=== PATIENT | male | born 1950 | race Caucasian/White ===

== ENCOUNTER 2018-10-30 10:43 | Emergency (ER) | payer MEDICARE, OTHER ==
[2018-10-30 11:55] VITALS: TEMP 97.1
--- NOTE | 2018-10-30 12:13 | RAD ---
EXAM DESCRIPTION: Chest,2 Views CLINICAL HISTORY: pain COMPARISON: None TECHNIQUE: PA/lateral FINDINGS: Question old healed rib fractures on the right. Small amount of fluid in the right minor fissure. Colonic interposition under the right hemidiaphragm. The film is partly expiratory with crowding of lung markings in the perihilar and lower lobe regions. Apices are clear. Lateral view shows blunting of one of the posterior costophrenic angles, probably the right, consistent with pleural effusion of small size. No focal consolidation to suggest pneumonia. No cierra congestive failure. IMPRESSION: Prominent heart without congestive failure. Small right pleural effusion. Electronically signed by: Evangelista Victoria MD 10/30/2018 12:12 PM [facility]
--- NOTE | 2018-10-30 12:15 | RAD ---
EXAM DESCRIPTION: Lumbar Spine 3 x-ray Views CLINICAL HISTORY: pain COMPARISON: None Available. TECHNIQUE: AP/lateral/coned-down lateral FINDINGS: There is degenerative leftward curvature of the mid and lower lumbar spine. Frontal view shows intact pedicles and transverse processes. Sacrum appears intact with the marrow SI joints. Lateral view shows no vertebral compressions. Degenerative loss of disc height is seen at L5-S1 with grade 1 anterolisthesis of L5 on S1 measuring 6 mm. Question bilateral L5 spondylolysis. Bones appear mildly osteopenic. Degenerative disc narrowing of the lower T-spine including T12-L1. IMPRESSION: Grade 1 spondylolisthesis of L5 on S1 with L5-S1 disc degenerative narrowing. Electronically signed by: Evangelista Victoria MD 10/30/2018 12:14 PM [facility]
--- NOTE | 2018-10-30 12:16 | RAD ---
EXAM DESCRIPTION: Thoracic Spine,AP Lateral CLINICAL HISTORY: pain COMPARISON: None Available. TECHNIQUE: AP/lateral/swimmer's lateral of the thoracic spine FINDINGS: There is anatomic alignment of thoracic vertebral bodies. Bones appear osteopenic. Normal appearance of the pedicles. Posterior medial ribs appear intact. No abnormal spinal curvature is present. Vertebral compressions: None Intervertebral disc spaces: Mild degenerative narrowing at multiple levels. Spurring is noted prominent finding. IMPRESSION: Negative for fracture or malalignment of the thoracic spine. Electronically signed by: Evangelista Victoria MD 10/30/2018 12:15 PM [facility]
--- NOTE | 2018-10-30 12:49 | ED.PDOC ---
History of Present Illness - General Chief Complaint: General Time Seen by Provider: 10/30/18 12:31 Source: patient, family Exam Limitations: no limitations - History of Present Illness Initial Comments: SLIPPED AND FELL ON ICE 1 WK AGO. LANDED ON R RIBS. R RIBS AND THORACOLUMBAR BACK PAINFUL. NO LOC. NO HEAD COLLISION. NO OTHER PAINS. PAIN SEVERE ENOUGH THAT HE IS TAKING AN OLD NORCO RX. Timing/Duration: 1 week Severity: moderate Improving Factors: nothing Worsening Factors: movement Associated Symptoms: denies symptoms Allergies/Adverse Reactions: Allergies NO KNOWN ALLERGY Allergy (Verified 10/30/18 11:17) Home Medications: Ambulatory Orders Acetaminophen W/ Codeine [Tylenol W/ CODEINE #3] 2 ea PO Q6H PRN #20 10/30/18 Finasteride 5 mg PO DAILY 10/30/18 Tamsulosin HCl [Flomax] 0.4 mg PO DAILY 10/30/18 Review of Systems - Review of Systems Constitutional: States: no symptoms reported EENTM: States: no symptoms reported Respiratory: States: no symptoms reported. Denies: cough Cardiology: Denies: chest pain, palpitations Gastrointestinal/Abdominal: States: no symptoms reported Genitourinary: States: no symptoms reported Musculoskeletal: States: back pain, other - R RIB PAIN. Denies: neck pain Skin: States: no symptoms reported Neurological: States: no symptoms reported Endocrine: States: no symptoms reported Hematologic/Lymphatic: States: no symptoms reported All other Systems: Reviewed and Negative Past Medical History (General) - Patient Medical History Hx Seizures: No Hx Stroke: No Hx Dementia: No Hx Asthma: No Hx of COPD: No Hx Cardiac Disorders: No Hx Congestive Heart Failure: No Hx Pacemaker: No Hx Hypertension: Yes Hx Thyroid Disease: No Hx Diabetes: No Hx Gastroesophageal Reflux: No Hx Renal Disease: No Hx Cancer: No Hx of HIV: No Hx Hepatitis C: No Hx MRSA: No Surgical History: other - Vaccination History Hx Tetanus, Diphtheria Vaccination: No Hx Influenza Vaccination: No Hx Pneumococcal Vaccination: No Immunizations Up to Date: No - Social History Hx Tobacco Use: No Hx Chewing Tobacco Use: No Hx Alcohol Use: Yes - occasional Hx Substance Use: No Hx Substance Use Treatment: No Hx Depression: No Feels Threatened In Home Enviroment: No Feels Threatened In a Relationship: No Hx Physical Abuse: No Hx Emotional Abuse: No Hx Suspected Abuse: No - Activities of Daily Living Hospice Agency (if applicable):: None - Female History Patient is a Female of Child Bearing Age (10 -59 yrs old): No Family Medical History - Family History Mother Family History: Unknown Physical Exam - Physical Exam General Appearance: Alert, Well Nourished Eye Exam: bilateral normal Ears, Nose, Throat: hearing grossly normal, normal ENT inspection Neck: full range of motion, normal inspection Respiratory: chest non-tender, lungs clear, normal breath sounds, no respiratory distress, no accessory muscle use Cardiovascular/Chest: normal peripheral pulses, regular rate, rhythm, no murmur, other - R POSTERIOR RIBS NTTP. THORACIC AND LUMBAR SPINE NTTP. Peripheral Pulses: radial,right: 2+, radial,left: 2+ Gastrointestinal/Abdominal: normal bowel sounds, non tender Rectal Exam: deferred Back Exam: normal inspection, no CVA tenderness, no vertebral tenderness Extremity: normal range of motion, normal inspection Neurologic: no motor/sensory deficits, alert Skin Exam: normal color, warm/dry Lymphatic: no adenopathy Progress - Results/Orders Results/Orders: XRAY THORACIC AND LUMBAR NEG FOR FRX. LUMBAR SHOWS DDD AND SPONDYLOLISTHESIS. PT DENIES RADICULOPATHY. CXR NEG FOR FRX. R SMALL PLEURAL EFFUSION IS INCIDENTAL FINDING AND MAY HAVE RESULTED FROM RIB CONTUSION. RIB CONTUSION - REST, ICE, NSAIDS. PT STATES IBUPROFEN NOT HANDLING THE PAIN THUS RX'D TYL#3. Departure - Departure Clinical Impression: Rib pain on right side Contusion of rib on right side Qualifiers: Encounter type: initial encounter Qualified Code(s): S20.211A - Contusion of right front wall of thorax, initial encounter Disposition: Discharge to Home or Self Care Condition: Good Departure Forms: ED Discharge - Pt. Copy, Patient Portal Self Enrollment Instructions: Bruised Rib (DC) Diet: resume usual diet Activity: increase activity as tolerated Referrals: Stacia Narvaez MD [Primary Care Provider] - 1-2 Weeks Prescriptions: Acetaminophen W/ Codeine [Tylenol W/ CODEINE #3] 2 ea PO Q6H PRN #20 PRN Reason: Pain Home Medications: Ambulatory Orders Acetaminophen W/ Codeine [Tylenol W/ CODEINE #3] 2 ea PO Q6H PRN #20 10/30/18 Finasteride 5 mg PO DAILY 10/30/18 Tamsulosin HCl [Flomax] 0.4 mg PO DAILY 10/30/18
[2018-10-30 13:06] VITALS: BP 140/89; O2SAT 96
--- NOTE | 2018-10-30 13:59 | RAD ---
EXAM DESCRIPTION: Chest,2 Views CLINICAL HISTORY: pain COMPARISON: None TECHNIQUE: PA/lateral FINDINGS: Question old healed rib fractures on the right. Small amount of fluid in the right minor fissure. Colonic interposition under the right hemidiaphragm. The film is partly expiratory with crowding of lung markings in the perihilar and lower lobe regions. Apices are clear. Lateral view shows blunting of one of the posterior costophrenic angles, probably the right, consistent with pleural effusion of small size. No focal consolidation to suggest pneumonia. No cierra congestive failure. IMPRESSION: Prominent heart without congestive failure. Small right pleural effusion. Electronically signed by: Evangelista Victoria MD 10/30/2018 12:12 PM [facility]
--- NOTE | 2018-10-30 14:00 | RAD ---
EXAM DESCRIPTION: Thoracic Spine,AP Lateral CLINICAL HISTORY: pain COMPARISON: None Available. TECHNIQUE: AP/lateral/swimmer's lateral of the thoracic spine FINDINGS: There is anatomic alignment of thoracic vertebral bodies. Bones appear osteopenic. Normal appearance of the pedicles. Posterior medial ribs appear intact. No abnormal spinal curvature is present. Vertebral compressions: None Intervertebral disc spaces: Mild degenerative narrowing at multiple levels. Spurring is noted prominent finding. IMPRESSION: Negative for fracture or malalignment of the thoracic spine. Electronically signed by: Evangelista Victoria MD 10/30/2018 12:15 PM [facility]
--- NOTE | 2018-10-30 14:00 | RAD ---
EXAM DESCRIPTION: Lumbar Spine 3 x-ray Views CLINICAL HISTORY: pain COMPARISON: None Available. TECHNIQUE: AP/lateral/coned-down lateral FINDINGS: There is degenerative leftward curvature of the mid and lower lumbar spine. Frontal view shows intact pedicles and transverse processes. Sacrum appears intact with the marrow SI joints. Lateral view shows no vertebral compressions. Degenerative loss of disc height is seen at L5-S1 with grade 1 anterolisthesis of L5 on S1 measuring 6 mm. Question bilateral L5 spondylolysis. Bones appear mildly osteopenic. Degenerative disc narrowing of the lower T-spine including T12-L1. IMPRESSION: Grade 1 spondylolisthesis of L5 on S1 with L5-S1 disc degenerative narrowing. Electronically signed by: Evangelista Victoria MD 10/30/2018 12:14 PM [facility]
--- NOTE | 2018-10-30 14:11 | RAD ---
EXAM DESCRIPTION: Lumbar Spine 3 x-ray Views CLINICAL HISTORY: pain COMPARISON: None Available. TECHNIQUE: AP/lateral/coned-down lateral FINDINGS: There is degenerative leftward curvature of the mid and lower lumbar spine. Frontal view shows intact pedicles and transverse processes. Sacrum appears intact with the marrow SI joints. Lateral view shows no vertebral compressions. Degenerative loss of disc height is seen at L5-S1 with grade 1 anterolisthesis of L5 on S1 measuring 6 mm. Question bilateral L5 spondylolysis. Bones appear mildly osteopenic. Degenerative disc narrowing of the lower T-spine including T12-L1. IMPRESSION: Grade 1 spondylolisthesis of L5 on S1 with L5-S1 disc degenerative narrowing. Electronically signed by: Evangelista Victoria MD 10/30/2018 12:14 PM [facility]
--- NOTE | 2018-10-30 14:11 | RAD ---
EXAM DESCRIPTION: Thoracic Spine,AP Lateral CLINICAL HISTORY: pain COMPARISON: None Available. TECHNIQUE: AP/lateral/swimmer's lateral of the thoracic spine FINDINGS: There is anatomic alignment of thoracic vertebral bodies. Bones appear osteopenic. Normal appearance of the pedicles. Posterior medial ribs appear intact. No abnormal spinal curvature is present. Vertebral compressions: None Intervertebral disc spaces: Mild degenerative narrowing at multiple levels. Spurring is noted prominent finding. IMPRESSION: Negative for fracture or malalignment of the thoracic spine. Electronically signed by: Evangelista Victoria MD 10/30/2018 12:15 PM [facility]
--- NOTE | 2018-10-30 14:11 | RAD ---
EXAM DESCRIPTION: Chest,2 Views CLINICAL HISTORY: pain COMPARISON: None TECHNIQUE: PA/lateral FINDINGS: Question old healed rib fractures on the right. Small amount of fluid in the right minor fissure. Colonic interposition under the right hemidiaphragm. The film is partly expiratory with crowding of lung markings in the perihilar and lower lobe regions. Apices are clear. Lateral view shows blunting of one of the posterior costophrenic angles, probably the right, consistent with pleural effusion of small size. No focal consolidation to suggest pneumonia. No cierra congestive failure. IMPRESSION: Prominent heart without congestive failure. Small right pleural effusion. Electronically signed by: Evangelista Victoria MD 10/30/2018 12:12 PM [facility]
== END 2018-10-30 13:07 | disposition home or self-care (01) ==
LOC: ER 10:43
DX: S20.211A Contusion of right front wall of thorax, initial encounter (principal); M54.6 Pain in thoracic spine; M54.5 Low back pain; M51.36 Other intervertebral disc degeneration, lumbar region; I10 Essential (primary) hypertension; W00.0XXA Fall on same level due to ice and snow, initial encounter; Y92.9 Unspecified place or not applicable